=== PATIENT | male | born 1970 | race African-American/Black ===

== ENCOUNTER 2021-12-27 12:29 | Emergency (ER) | payer BC ==
--- OUTSIDE RECORDS SUMMARY | 2021-12-27 12:32 | XMS REPORT | Continuity of Care Document ---
:1970 Author Organization [facility] Address [address] [place] [address] [address] [place] [address] Care Team Providers Name Role Phone CHUY DAVIS Attending Clinician Unavailable Problems This patient has no known problems. Allergies, Adverse Reactions, Alerts This patient has no known allergies or adverse reactions. Medications This patient has no known medications. Procedures This patient has no known procedures. Encounters Start End Encounter Admission Attending Care Care Encounter Source Date/Time Date/Time Type Type Clinicians Facility Department ID 2020-01-17 2020-01-17 Emergency [facility] [id number] [address] [place] 00:00:00 00:00:00 CHUY [address] Results This patient has no known results.
[2021-12-27] MEDS ORDERED: NA CHLORIDE 0.9% 1,000 ML ONE (13:00)
[2021-12-27 13:03] LABS: Absolute Lymphocytes (CBC) 2.2 K/uL (0.7-4.9); Hematocrit 44.4 % (39.6-49.0); Lymphocytes % 20.8 % (15.3-44.8); MPV 7.2 fL (7.6-11.3); RBC Red Blood Cell Count 4.82 M/uL (4.33-5.43)
[2021-12-27 13:16] LABS: Protime INR 1.1
[2021-12-27 13:20] LABS: Potassium 3.3 mmol/L (3.5-5.1); Troponin High Sensitivity 9.5 pg/mL (<58.9)
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
--- NOTE | 2021-12-27 14:12 | RAD REPORT ---
EXAM DESCRIPTION: RAD - Forearm Left - 12/27/2021 2:05 pm CLINICAL HISTORY: Left forearm pain status post injury FINDINGS: No fracture is seen
--- NOTE | 2021-12-27 14:14 | RAD REPORT ---
EXAM DESCRIPTION: Aquiles Lopez Left12/27/2021 2:05 pm CLINICAL HISTORY: Left leg pain status post injury FINDINGS: No fracture is seen
--- NOTE | 2021-12-27 14:15 | RAD REPORT ---
EXAM DESCRIPTION: Mindy Single View12/27/2021 2:05 pm CLINICAL HISTORY: Chest pain COMPARISON: none FINDINGS: The lungs appear clear of acute infiltrate. The heart is normal size
--- NOTE | 2021-12-27 14:17 | RAD REPORT ---
EXAM DESCRIPTION: RAD - Humerus Left - 12/27/2021 2:05 pm CLINICAL HISTORY: Left arm pain FINDINGS: No fracture is seen There is elevation of the distal left clavicle with respect to the acromion process. This probably in dicates a ligamentous injury. The age is indeterminate and should be correlated clinically
[2021-12-27] MEDS ORDERED: POTASSIUM 25 MEQ EFFERV TAB ONE (15:06)
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
[2021-12-27 16:59] VITALS: TEMP 98
[2021-12-27 17:01] VITALS: O2SAT 99
--- NOTE | 2021-12-27 17:02 | RAD REPORT ---
EXAM DESCRIPTION: RAD - Acromioclavicular Joints - 12/27/2021 3:54 pm CLINICAL HISTORY: shoulder pain COMPARISON: Humerus Left dated 12/27/2021; Forearm Left dated 12/27/2021; Chest Single View dated 12/27 FINDINGS: Deformity of the right lateral clavicle likely related to remote trauma. The left lateral clavicle is subluxed superiorly with respect to the acromion. No change in positioning with or withou t weight identified. No fractures seen. Fusion hardware in the spine . IMPRESSION: Findings remain concerning for left AC joint separation which remains age indeterminate. Comparison with the contralateral side is limited due to remote posttraumatic deformity of the right clavicle. The left AC joint alignment remained the same with and without weights.
[2021-12-27 17:03] VITALS: BP 168/88
== END 2021-12-27 16:49 | disposition home or self-care (01) ==
LOC: ER 12:29
DX: S43.102A Unspecified dislocation of left acromioclavicular joint, initial encounter (principal); S81.812A Laceration without foreign body, left lower leg, initial encounter; W31.89XA Contact with other specified machinery, initial encounter; Y92.89 Other specified places as the place of occurrence of the external cause; I10 Essential (primary) hypertension; F17.290 Nicotine dependence, other tobacco product, uncomplicated
CPT/HCPCS: 93005; 85025; 80048; 36415; 86900; 86850; 85610; 82565; 86901; 85730; 84484; 70450; 72125; 71260; 74177; 71045; 73050; 73090; 73060; 73590; 99284; Q9967; J7030